=== PATIENT | male | born 1955 | race African-American/Black ===

== ENCOUNTER 2018-05-21 08:17 | Emergency (ER) | payer OTHER ==
[~2018-05-21] VITALS: Ht 182.9 cm; Wt 86.0 kg
[2018-05-21] MEDS ORDERED: LIDOCAINE HCL/PF 1% 10 MG/ML 5ML VIAL IJ ONE (11:15)
[2018-05-21] MEDS ORDERED: BACITRACIN ZINC OINT UDPKT TOP ONE (11:15)
[2018-05-21 12:49] LABS: BASOPHILS % 0.2 % (0.0-2.0); EOSINOPHILS % 0.3 % (0.0-5.0); HEMATOCRIT. 40.7 % (42.0-52.0); HEMOGLOBIN. 13.8 g/dL (14.0-18.0); LYMPHOCYTES % 7.2 % (20.0-50.0); MEAN CORPUSCULAR HEMOGLOBIN 30.6 pg (28.0-32.0); MEAN CORPUSCULAR VOLUME 90.2 fL (80.0-94.0); MEAN PLATELET VOLUME 7.8 fl (7.4-10.4); MONOCYTES % 5.1 % (2.0-8.0); NEUTROPHILS % 87.2 % (40.0-76.0); PLATELET 255 x1000/uL (130-400); RED BLOOD CELL COUNT 4.52 mill/uL (4.7-6.1); RED CELL DISTRIBUTION WIDTH 13.2 % (11.6-14.6)
[2018-05-21 12:57] LABS: CHLORIDE 100 mEq/L (98-107)
[2018-05-21 14:35] VITALS: BP 144/83
== END 2018-05-21 14:44 | disposition home or self-care (01) ==
LOC: ER 08:17
DX: S01.81XA Laceration without foreign body of other part of head, initial encounter (principal); S43.102A Unspecified dislocation of left acromioclavicular joint, initial encounter; I10 Essential (primary) hypertension; X99.8XXA Assault by other sharp object, initial encounter; Y93.89 Activity, other specified; Y92.89 Other specified places as the place of occurrence of the external cause; Y99.8 Other external cause status
CPT/HCPCS: 36415; 70450; 70486; 71045; 73000; 80053; 85025; 99284; J3490

== ENCOUNTER 2018-05-28 08:35 | Emergency (ER) | payer OTHER ==
[~2018-05-28] VITALS: Ht 195.6 cm; Wt 82.0 kg
[2018-05-28 08:54] VITALS: BP 152/94
== END 2018-05-28 11:32 | disposition home or self-care (01) ==
LOC: ER 08:35
DX: S01.81XD Laceration without foreign body of other part of head, subsequent encounter (principal); I10 Essential (primary) hypertension; Y08.89XD Assault by other specified means, subsequent encounter
CPT/HCPCS: 99281